=== PATIENT | female | born 1980 | race Caucasian/White ===

== ENCOUNTER 2022-12-04 09:39 | Emergency (ER) | payer OTHER, SELFPAY ==
[2022-12-04 09:58] VITALS: BP 116/46; PULSE 68; RESP 16; TEMP 36.5; O2SAT 100; BMI 22.1
[2022-12-04 10:26] LABS: Basophils Percent Auto 0.4 % (0-2); Eosinophils Absolute Auto 0.1 X10*3/uL (0.0-0.4); Eosinophils Percent Auto 1.3 % (0-4); Hematocrit 44.9 % (37.0-47.0); Hemoglobin 14.9 g/dl (12.0-16.0); Imm Gran Abs Auto 0.05 X10*3/uL (0.00-0.03); Imm Gran Pct Auto 0.6 % (0.0-0.4); Lymphocytes Absolute Auto 2.5 X10*3/uL (1.2-4.9); Lymphocytes Percent Auto 27.6 % (20-40); MANUAL DIFF FLAG NO; Mean Corpuscular HGB Conc 33.2 g/dl (31.0-35.0); Mean Corpuscular Hemoglobin 29.4 pg (27.0-33.0); Mean Corpuscular Volume 88.7 fL (80.0-98.0); Mean Platelet Volume 8.5 fL (9.4-12.3); Monocytes Absolute Auto 0.5 X10*3/uL (0.1-1.2); Monocytes Percent Auto 5.5 % (2-11); Neutrophils Absolute Auto 5.8 x10*3/uL (2.0-8.3); Neutrophils Percent Auto 64.6 % (45-73); Platelet Count 321 X10*3/uL (160-400); Red Blood Count 5.06 X10*6/uL (4.20-5.50); Red Cell Distribution Width 13.2 % (11.0-16.0); White Blood Count 8.9 X10*3/uL (4.8-10.8)
[2022-12-04 10:27] LABS: Appearance Urine Clear; Color Urine Yellow; Glucose Urine UA Negative (Negative); Leukocyte Esterase Urine Negative (Negative); Nitrite Urine Negative (Negative); Urine Blood Negative (Negative); Urine Ketones Negative (Negative); Urine Protein Negative (Neg-Trace)
[2022-12-04 10:38] LABS: Anion Gap 10 (12-20)
[2022-12-04 10:40] LABS: Calcium 9.3 mg/dL (8.4-10.2); Chloride 110 mmol/L (96-108); Glucose Random 91 mg/dL (60-115); Potassium 4.1 mmol/L (3.3-5.1)
[2022-12-04 11:04] LABS: Blood Urea Nitrogen 12 mg/dL (9-16); Carbon Dioxide 26 mmol/L (22-29); Creatinine Clr Calc Pharmacy 59.1; Estimated Glomerular Filt Rate > 60; Sodium 142 mmol/L (135-145)
--- NOTE | 2022-12-04 11:20 | ED.GENADULT ---
HPI - General Adult General Chief complaint: Back Pain/Injury Stated complaint: low blood pressure/ L side pain Time Seen by Provider: 12/04/22 11:19 Source: patient Mode of arrival: ambulatory Limitations: no limitations History of Present Illness HPI narrative: Patient with History of chronic kidney stones and flank pain previous CT scan showed stone in the kidney nonobstructive comes here as patient was seen at PCP office yesterday and pressure was 100/22 patient states she feel dizzy but at this time patient not feeling dizzy no fever no chills no nausea no vomiting on arrival blood pressure was 116/46 with pulse rate of 68 denies any heart issues Related Data Previous Rx's Medication Instructions Recorded tramadol 50 mg tablet 50 mg PO Q6H PRN pain #20 tabs 12/04/22 Allergies Allergy/AdvReac Type Severity Reaction Status Date / Time divalproex sodium Allergy Intermediate HEADACHE Verified 12/04/22 09:56 [From DEPAKOTE] oxcarbazepine [OXCARBAZEPINE] Allergy Intermediate HEADACHE Verified 12/04/22 09:56 amoxicillin [AMOXICILLIN] Allergy Unknown UNKNOWN Verified 12/04/22 09:56 aspirin [ASA] Allergy Unknown RASH Verified 12/04/22 09:56 azithromycin [AZITHROMYCIN] Allergy Unknown rash Verified 12/04/22 09:56 codeine [CODEINE] Allergy Unknown SWELLING Verified 12/04/22 09:56 erythromycin base Allergy Unknown rash Verified 12/04/22 09:56 [ERYTHROMYCIN BASE] penicillin V Allergy Unknown Hives Verified 12/04/22 09:56 Penicillins [PENICILLINS] Allergy Unknown HIVES Verified 12/04/22 09:56 valacyclovir [From VALTREX] Allergy Unknown rash Verified 12/04/22 09:56 fluoxetine [From PROZAC] AdvReac Unknown SUICIDAL Unverified 03/16/20 14:39 IDEATION trazodone [TRAZODONE] AdvReac Unknown NIGHTMARES Unverified 03/16/20 14:39 Erythromycin Allergy Unknown Rash Uncoded 12/04/22 09:56 Review of Systems Review of Systems: Yes all other systems are reviewed and are negative [facility] Social History Social History Advance Directives: No Physical Exam ED Vital Signs: Vital Signs - 24 hr 12/04/22 09:58 Temperature 97.7 F Pulse Rate 68 Respiratory Rate 16 Blood Pressure 116/46 L Pulse Oximetry 100 Oxygen Delivery Method Room Air BMI result Body Mass Index 22.1 Appearance: Alert. Oriented X3. No acute distress. Eyes: PERRLA, No Nystagmus ENT: Pharynx normal. Oral Mucosa moist Neck: Normal inspection. Neck supple. CVS: Normal heart rate and rhythm. Pulses normal. No murmur/rub or gallop Respiratory: No respiratory distress. Equal air entry bilateral, no wheezing/rales/rhonchi Abdomen: Soft and nontender. Bowel sounds are present, no mass palpable, left CVA tenderness+ Skin: Skin warm and dry. Normal skin color. Normal skin turgor. Extremities: No lower extremity edema. No calf tenderness Neuro: Oriented X 3. No motor deficit. Medical Decision Making Medical Decision Making [facility] Narrative: Patient with normal labs urine negative for blood likely patient has chronic renal colic from stone in the kidney which is nonobstructive as seen in previous CT scan patient. Patient blood pressure was recheck no orthostatic blood pressure was noticed it was 109/51 while lying, 116/64 while seated and 123/70 on standing. Patient reassured about blood pressure findings advised to drink plenty of fluids follow-up with urologist Lab Data [facility] Lab Attestation statement: I reviewed the patient's lab results. 12/04/22 10:11 12/04/22 10:11 Labs: Lab Results 12/04/22 12/04/22 12/04/22 Range/Units 10:11 10:11 10:11 WBC 8.9 (4.8-10.8) X10*3/uL RBC 5.06 (4.20-5.50) X10*6/uL Hgb 14.9 (12.0-16.0) g/dl Hct 44.9 (37.0-47.0) % MCV 88.7 (80.0-98.0) fL MCH 29.4 (27.0-33.0) pg MCHC 33.2 (31.0-35.0) g/dl RDW 13.2 (11.0-16.0) % Plt Count 321 (160-400) X10*3/uL MPV 8.5 L (9.4-12.3) fL Immature Gran % (Auto) 0.6 H (0.0-0.4) % Neut % (Auto) 64.6 (45-73) % Lymph % (Auto) 27.6 (20-40) % [place] % (Auto) 5.5 (2-11) % Eos % (Auto) 1.3 (0-4) % Baso % (Auto) 0.4 (0-2) % Lymph # (Auto) 2.5 (1.2-4.9) X10*3/uL [place] # (Auto) 0.5 (0.1-1.2) X10*3/uL Eos # (Auto) 0.1 (0.0-0.4) X10*3/uL Baso # (Auto) 0.0 (0.0-0.2) X10*3/uL Abs Immat Gran (auto) 0.05 H (0.00-0.03) X10*3/uL Absolute Neuts (auto) 5.8 (2.0-8.3) x10*3/uL Absolute Nucleated RBC 0.000 (0.0-0.012) X10*3/uL Nucleated RBC % (auto) 0.0 (0.0-0.2) /100WBC Sodium 142 (135-145) mmol/L Potassium 4.1 (3.3-5.1) mmol/L Chloride 110 H (96-108) mmol/L Carbon Dioxide 26 (22-29) mmol/L Anion Gap 10 L (12-20) BUN 12 (9-16) mg/dL Creatinine 0.99 (0.5-1.4) mg/dL Estim Creat Clear Calc 59.1 Estimated GFR > 60 Random Glucose 91 (60-115) mg/dL Calcium 9.3 (8.4-10.2) mg/dL Urine Color Yellow Urine Appearance Clear Urine pH 6.0 (5.0-9.0) Ur Specific [place] 1.020 (1.005-1.025) Urine Protein Negative (Neg-Trace) mg/dL Urine Glucose (UA) Negative (Negative) mg/dL Urine Ketones Negative (Negative) mg/dL Urine Blood Negative (Negative) Urine Nitrite Negative (Negative) Ur Leukocyte Esterase Negative (Negative) Discharge Plan Discharge Clinical Impression: Renal colic Patient Disposition: Home, Self-Care Instructions: Renal Colic (ED) Additional Instructions: Drink plenty of fluids Pain medication as prescribed Follow-up with urology Your blood pressure is normal Prescriptions: New tramadol 50 mg tablet 50 mg PO Q6H PRN (Reason: pain) Qty: 20 0RF Referrals: Quentin Smiley MD [Physician] - 2 weeks
[2022-12-04 12:56] VITALS: BP 128/60
== END 2022-12-04 12:57 | disposition home or self-care (01) ==
PROVIDERS: Emergency Provider Internal Medicine; PCP Nurse Practitioner Family
DX: N23 Unspecified renal colic (principal)
CPT/HCPCS: 36415; 80048; 81003; 85025; 99283

== ENCOUNTER 2023-01-06 08:55 | Outpatient (AMB) | payer OTHER, SELFPAY ==
--- NOTE | 2023-01-06 09:00 | A.OFFVIS_ITS ---
Intake Intake Visit Reasons: ER follow up- hx stones/renal colic Intake Note: Patient is present for initial visit ER follow up h/o kidney stones/renal colic ER Visit: 12/04/22 Urology Medications: none Blood Thinner: none Grinding Wheel Operator Required: No Accompanied by: Self / Same As Patient Allergies divalproex sodium [From DEPAKOTE] Allergy (Intermediate, Verified 01/06/23 19:30) HEADACHE oxcarbazepine [OXCARBAZEPINE] Allergy (Intermediate, Verified 01/06/23 19:30) HEADACHE amoxicillin [AMOXICILLIN] Allergy (Unknown, Verified 01/06/23 19:30) UNKNOWN aspirin [ASA] Allergy (Unknown, Verified 01/06/23 19:30) RASH azithromycin [AZITHROMYCIN] Allergy (Unknown, Verified 01/06/23 19:30) rash codeine [CODEINE] Allergy (Unknown, Verified 01/06/23 19:30) SWELLING erythromycin base [ERYTHROMYCIN BASE] Allergy (Unknown, Verified 01/06/23 19:30) rash penicillin V Allergy (Unknown, Verified 01/06/23 19:30) Hives Penicillins [PENICILLINS] Allergy (Unknown, Verified 01/06/23 19:30) HIVES valacyclovir [From VALTREX] Allergy (Unknown, Verified 01/06/23 19:30) rash fluoxetine [From PROZAC] Adverse Reaction (Unknown, Unverified 01/06/23 19:30) SUICIDAL IDEATION trazodone [TRAZODONE] Adverse Reaction (Unknown, Unverified 01/06/23 19:30) NIGHTMARES Erythromycin Allergy (Unknown, Uncoded 01/06/23 19:30) Rash Medication List - Last Reconciled 01/06/23 by CHEY Ortiz-BC creatine monohydrate ea PO dextroamphetamine-amphetamine 15 mg 1 tab PO BID PRN dextroamphetamine-amphetamine 30 mg ER 1 cap PO DAILY mecobalamin (vitamin B12) mcg PO HPI HPI Comments History of Present Illness Details Eugenia is a very pleasant 42-year-old female patient of Dr. Vega. She presents to the office today as a new patient for history of nephrolithiasis. In discussion with the patient today she reports to be doing and feeling well. She reports recently seeking emergency room care approximately 1 month ago for hypotension as well as left-sided flank pain/low black pain that radiated to her abdomen. In review of patient's chart it does not appear recent imaging was completed and or obtained. Most recent CT imaging from 2020 showing bilateral nonobstructing renal calculi. Patient reports feeling frustrated over care she received while in the ER. Patient reports pain has since subsided. She denies urinary urgency, urinary frequency, incontinence, nocturia, hematuria, dysuria, foul smelling urine, changes to urinary stream, flank pain, fever, and or chills. She is happy with her current voiding parameters. When asked she reports a longstanding history of nephrolithiasis with previous surgical intervention including ESWL as well as ureteroscopy. She reports having followed up with Dr. Forman in the past. When asked she reports to be drinking soda and energy drinks daily. Discussed at length the importance of drinking water in relation to longstanding history of nephrolithiasis as well as for overall health and well-being. In office urinalysis results reviewed with the patient today. She otherwise offers no issues or concerns at this time. Review of Systems Const All systems reviewed & are unremarkable except as noted in HPI and below Reports no additional complaints Eyes Reports no additional complaints ENT Reports no additional complaints Card Reports no additional complaints Resp Reports no additional complaints GI Reports no additional complaints Reports as per HPI Musc Reports no additional complaints Neuro Reports no additional complaints Psych Details: Patient reports she has a history of SI over 5 years ago. She denies any SI at this time. Endo Reports no additional complaints Ubaldo/Lymph Reports no additional complaints Aller/Immun Reports no additional complaints Physical Exam Const General: cooperative, healthy appearing, comfortable, no acute distress, well developed, alert and awake Nutritional Appearance: average body habitus Orientation/consciousness: patient oriented x3 Limitations: no limitations HEENT Head: Yes normal to inspection, Yes normocephalic and Yes atraumatic Ears: hearing grossly normal bilaterally Eyes General: appearance normal, both eyes and all related structures Neck Neck: Yes normal visual inspection and Yes trachea midline Chest Chest palpation & inspection: normal inspection of the chest Resp Effort & Inspection: normal respiratory effort and able to speak in complete sentences Cardio Rate: regular rate GI Inspection: Yes normal to inspection General: Yes no CVA tenderness Back/Spine/Pelvis Back: no CVA tenderness Skin General skin exam: no rashes or lesions noted Neuro General: patient oriented x3 Extrem General: Yes normal to inspection Psych Appearance: grossly normal and well kempt Mental Status: mental status grossly normal Speech and movement: Normal speech and movement present and Clear speech present Affect: normal affect Attitude: cooperative Thought process: Normal thought process present Thought content: Normal thought content present Insight: Fair insight present (Psych) Judgement: Fair judgement present (Psych) Results AMB Urinalysis, Automated UA Leukoctes 0 Mervat/uL Last Edit by CORD:USE [facility] Abelino on 01/06/23 09:12 UA Nitrite Negative Last Edit by Movellasyamila Onstream Mediaclaudine on 01/06/23 09:12 UA Urobilinogen 0.2 mg/dL Last Edit by Cartilixclaudine on 01/06/23 09:12 UA Protein 0 mg/dL Last Edit by Cartilixclaudine on 01/06/23 09:12 UA pH 7.0 Last Edit by Movellasyamila [employer]stream Mediaclaudine on 01/06/23 09:12 UA Blood 0 Frank/uL Last Edit by Cartilixclaudine on 01/06/23 09:12 UA Specific [place] 1.010 Last Edit by Cartilixclaudine on 01/06/23 09:12 UA Ketone Negative Last Edit by Cartilixclaudine on 01/06/23 09:12 UA Bilirubin 0 mg/dL Last Edit by Cartilixclaudine on 01/06/23 09:12 UA Glucose 0 mg/dL Last Edit by Movellasyamila Onstream Mediaclaudine on 01/06/23 09:12 Results Reviewed Results Reviewed: Laboratory Last Values Urine pH (Auto) 7.0 01/06/23 09:06 Specific [place] (Auto) 1.010 01/06/23 09:06 Urine Protein (Auto) 0 mg/dL 01/06/23 09:06 Glucose (UA)(Auto) 0 mg/dL 01/06/23 09:06 Urine Ketones (Auto) Negative 01/06/23 09:06 Urine Blood (Auto) 0 Frank/uL 01/06/23 09:06 Urine Nitrite (Auto) Negative 01/06/23 09:06 Urine Bilirubin (Auto) 0 mg/dL 01/06/23 09:06 Urine Urobilinogen (Auto) 0.2 mg/dL 01/06/23 09:06 Leukocyte Esterase (Auto) 0 Mervat/uL 01/06/23 09:06 Assessment & Plan Assessment & Plan (1) Bilateral renal stones: Code(s): N20.0 - Calculus of kidney Plan In office urinalysis results reviewed with the patient today; as noted above. Will obtain renal ultrasound for further assessment evaluation. Patient reports left-sided flank pain that radiated to her abdominal area has since subsided. Patient denies any urological issues or concerns at this time. Patient with previous CT imaging from 2020 with bilateral nonobstructing renal calculi Discussed at length the importance of drinking plenty of water daily. Discussed avoiding energy drinks and soda in relation to longstanding history of nephrolithiasis as well as for overall health and well-being. Discussed adding 1 oz of lemon juice to water daily. Discussed initiation of vitamin B6 in the setting of nephrolithiasis. Follow-up in 4-6 weeks with imaging to be completed prior; or sooner with any issues, concerns, and or questions. Orders: Orders US renal BI Today N20.0 - Calculus of kidney AMB Urinalysis Automated Today Z13.9 - Encounter for screening, unspecified Patient Instructions: The patient had an opportunity to ask questions regarding the treatment plan. All questions were answered. Physical exam, labs, and imaging were discussed and reviewed in detail. As well as risks, benefits, and discussion of treatment choices. No major barriers to understanding were identified. The patient expressed understanding and agreement with the above treatment plan. The patient was made aware they should contact our office by phone for worsening of their current condition, the appearance of new symptoms, or with any questions or concerns. Compliance is encouraged with any medications and follow up testing that is ordered. It is a privilege to be allowed the opportunity to participate in? your urological care.? Again, if you have any questions or concerns If you have any questions or concerns please do not hesitate to contact me. The office is [phone]. This note is constructed using voice recognition software. While every effort has been made to ensure accuracy continuous process coffee roaster errors may have been included. Yours sincerely, ANTONIO Ortiz Coding Level of Care Code New Pt Level 3 (93490) Diagnoses Bilateral renal stones N20.0
== END 2023-01-06 10:39 | disposition home or self-care (01) ==
PROVIDERS: PCP Nurse Practitioner Family; Visit Provider Nurse Practitioner Family
DX: N20.0 Calculus of kidney (principal)
CPT/HCPCS: 99203

== ENCOUNTER → 2023-01-06 08:55 | Outpatient (BNVA) | payer OTHER, SELFPAY | PROVIDERS: PCP Nurse Practitioner Family; Visit Provider Nurse Practitioner Family | DX: N20.0 Calculus of kidney (principal) | CPT/HCPCS: 99202 ==

== ENCOUNTER 2023-01-27 08:30 | Outpatient (REF) | payer OTHER, SELFPAY ==
--- NOTE | ~2023-01-27 | US_ITS ---
EXAMINATION: US RETROPERITONEAL LIMITED (RENAL ONLY) CLINICAL INFORMATION: Calculus of kidney. COMPARISON: Ultrasound retroperitoneal limited (renal only) 05/23/2021 and 07/30/2019. CT abdomen and pelvis without contrast 01/28/2019. X-ray abdomen KUB 08/02/2015 and 07/26/2015. TECHNIQUE: Real-time imaging of the kidneys. FINDINGS: RIGHT KIDNEY: 11.3 x 2.9 x 5.8 cm (SAG x AP x TRV). The kidney is normal in size, contour, and echogenicity. Renal cortical thickness is normal. No focal parenchymal lesions or hydronephrosis. There are nonobstructive echogenic stones. A lower pole stone measures 0.4 x 0.3 x 0.3 cm. Midpole stones measures 0.3 x 0.3 x 0.3 cm and 0.4 x 0.3 x 0.3). LEFT KIDNEY: 10.7 x 4.8 x 5.0 cm (SAG x AP x TRV). The kidney is normal in size, contour, and echogenicity. Renal cortical thickness is normal. No calculi or focal parenchymal lesions. No hydronephrosis. US/US renal BI IMPRESSION: 1. Nonobstructive echogenic stones right kidney. No caliectasis or hydronephrosis. 2. The left kidney is unremarkable.
== END 2023-01-27 08:31 | disposition home or self-care (01) ==
LOC: HO.HMGCX 08:30
PROVIDERS: PCP Nurse Practitioner Family; Visit Provider Nurse Practitioner Family
DX: N20.0 Calculus of kidney (principal)
CPT/HCPCS: 76775

== ENCOUNTER 2023-05-14 14:59 | Emergency (ER) | payer OTHER, SELFPAY ==
--- NOTE | 2023-05-14 15:12 | ED_ITS ---
HPI - General Adult General Chief complaint: Psychiatric Symptoms Stated complaint: SI THREATS @WORK THIS AM,NO LONGER SI,WANTS EVAL Time Seen by Provider: 05/14/23 15:11 Source: patient and EMS Mode of arrival: EMS Limitations: no limitations History of Present Illness HPI narrative: Patient is a 42 year old assigned female at with a history of mental health issues presenting to the emergency department today with possible suicidal statements. Patient states that she was at work, talking to HR about how her mental health causes her to call off work sometimes and explaining she had a suicide attempt many years ago. Patient states that she went to lunch and when she returned, she was met by police and told that she needed to come to the hospital to be evaluated by mental health professionals. Patient states that she did not make suicidal statements and is not feeling suicidal at this time. Patient denies any dizziness, lightheadedness, abdominal pain, nausea, vomiting, fever, chills, blurry vision, double vision, loss of vision, chest pain, difficulty breathing, shortness of breath, back pain, night sweats, pain with urination, increased urinary frequency, increased urinary urgency, blood in her urine or stool, syncope or a near syncopal episode, recent trauma or falls, bowel incontinence, bladder incontinence, bowel retention, bladder retention, or any other complaints at this time. Relieving factors: none Exacerbating factors: none Associated symptoms: denies other symptoms Treatments prior to arrival: none Related Data Home Medications Medication Instructions Recorded Confirmed creatine monohydrate ea PO 01/06/23 01/06/23 dextroamphetamine-amphetamine 15 1 tab PO BID PRN 01/06/23 01/06/23 mg tablet dextroamphetamine-amphetamine ER 1 cap PO DAILY 01/06/23 01/06/23 30 mg 24hr capsule,extend release mecobalamin (vitamin B12) 500 mcg mcg PO 01/06/23 01/06/23 chewable tablet Allergies Allergy/AdvReac Type Severity Reaction Status Date / Time divalproex sodium Allergy Intermediate HEADACHE Verified 01/06/23 19:30 [From DEPAKOTE] oxcarbazepine [OXCARBAZEPINE] Allergy Intermediate HEADACHE Verified 01/06/23 19:30 amoxicillin [AMOXICILLIN] Allergy Unknown UNKNOWN Verified 01/06/23 19:30 aspirin [ASA] Allergy Unknown RASH Verified 01/06/23 19:30 azithromycin [AZITHROMYCIN] Allergy Unknown rash Verified 01/06/23 19:30 codeine [CODEINE] Allergy Unknown SWELLING Verified 01/06/23 19:30 erythromycin base Allergy Unknown rash Verified 01/06/23 19:30 [ERYTHROMYCIN BASE] penicillin V Allergy Unknown Hives Verified 01/06/23 19:30 Penicillins [PENICILLINS] Allergy Unknown HIVES Verified 01/06/23 19:30 valacyclovir [From VALTREX] Allergy Unknown rash Verified 01/06/23 19:30 fluoxetine [From PROZAC] AdvReac Unknown SUICIDAL Unverified 01/06/23 19:30 IDEATION trazodone [TRAZODONE] AdvReac Unknown NIGHTMARES Unverified 01/06/23 19:30 Erythromycin Allergy Unknown Rash Uncoded 01/06/23 19:30 Review of Systems 2 Constitutional: Constitutional: Reports no additional constitutional complaints, Denies chills, Denies fever(s) and Denies night sweats Eyes: Eyes: Reports no additional eye complaints, Denies blurry vision, Denies change in vision, Denies diplopia, Denies eye discharge, Denies loss of vision and Denies eye pain ENT: Denies dizziness Cardiovascular: Cardiovascular: Reports no additional cardiovascular complaints, Denies chest pain, Denies lightheadedness, Denies Loss of Consciousness and Denies dyspnea Respiratory: Respiratory: Reports no additional respiratory complaints and Denies dyspnea Gastrointestinal: Gastrointestinal: Reports no additional gastrointestinal complaints, Denies abdominal pain, Denies melena, Denies hematochezia, Denies change in bowel habits and Denies change in stool character Genitourinary: Genitourinary: Denies hematuria, Denies urinary frequency, Denies dysuria, Denies urinary incontinence, Denies urinary hesitancy and Denies urinary urgency Musculoskeletal: Musculoskeletal: Reports no additional musculoskeletal complaints, Denies numbness and Denies tingling Neurologic: Denies dizziness, Denies loss of vision, Denies numbness and Denies tingling Psychiatric: Psychiatric: Reports no additional psychiatric complaints, Denies homicidal ideation and Denies suicidal ideation Endocrine: Endocrine: Reports no additional endocrine complaints Hematologic/Lymphatic: Hematologic/Lymphatic: Reports no additional hematologic/lymphatic complaints Allergic/Immunologic: Allergic/Immunologic: Reports no additional allergic/immunologic complaints PMFSH Past Medical History Attestation statement: The following information was validated with the patient. Source: old records reviewed and nursing notes reviewed Physical Exam ED Vital Signs: Vital Signs - 24 hr 05/14/23 15:22 Temperature 98.6 F Pulse Rate 80 Respiratory Rate 16 Blood Pressure 139/47 L Pulse Oximetry 99 Oxygen Delivery Method Room Air BMI result Body Mass Index 26.6 Const General: cooperative, no acute distress, alert and awake Nutritional Appearance: well nourished Orientation/consciousness: patient oriented x3 Limitations: no limitations HENMT Head: Yes normal to inspection and Yes atraumatic Ears: hearing grossly normal bilaterally and external ears normal General nose exam: Normal external nose present, no nasal discharge noted and no epistaxis Face and sinus: Yes normal facial exam, No abrasion and No laceration Mouth: Normal oral and palatal mucosa present, no drooling and no muffled voice Eyes General: appearance normal, both eyes and all related structures Periorbital: periorbital findings normal Eyelids: Yes eyelids normal Conjunctivae: conjunctivae normal Pupils: Equal, round and reactive pupils present EOM: EOMs intact bilaterally Neck Neck: Yes normal visual inspection, Yes full ROM and Yes no lymphadenopathy Chest Chest palpation & inspection: normal inspection of the chest Resp Effort & Inspection: normal respiratory effort and able to speak in complete sentences GI Inspection: Yes normal to inspection Neuro General: patient oriented x3 and moves all extremities Cranial nerves: Yes Equal, round and reactive pupils present Cognition (Neuro): normal cognition Motor exam (neuro): 5/5 motor strength present throughout Sensory Exam: Normal double simultaneous stimulation for sensation Coordination: [id number] test normal Extrem General: Yes normal to inspection, Yes full ROM and Yes capillary refill normal Psych Appearance: grossly normal Mental Status: mental status grossly normal Affect: normal affect Attitude: cooperative Thought process: Normal thought process present Thought content: Normal thought content present Insight: Good insight present (Psych) Medical Decision Making Medical Decision Making MDM Narrative: Patient is a 42 year old assigned female at with a history of mental health issues presenting to the emergency department today for an evaluation after being accused of making suicidal statements. Patient's physical exam was unremarkable. Patient's labs are pending at this time. Patient's CARE team evaluation is pending at this time. Disposition will be determined after labs have resulted and the CARE team evalution has been done. Differential Diagnosis Differential Diagnoses: The differential diagnosis associated with the presentation includes Suicidal ideation Depression Mental health crisis Normal evaluation Admission/Observation Consideration of admission/observation: Escalation of care including admission/observation considered Admission will be determined after the patient's labs have resulted and the patient is evaluated by the CARE team. Lab Data MDM Lab Attestation statement: I reviewed the patient's lab results. 05/14/23 15:37 05/14/23 15:37 Labs: Lab Results 05/14/23 Range/Units 15:37 WBC 9.9 (4.8-10.8) X10*3/uL RBC 5.07 (4.20-5.50) X10*6/uL Hgb 15.1 (12.0-16.0) g/dl Hct 44.9 (37.0-47.0) % MCV 88.6 (80.0-98.0) fL MCH 29.8 (27.0-33.0) pg MCHC 33.6 (31.0-35.0) g/dl RDW 13.0 (11.0-16.0) % Plt Count 314 (160-400) X10*3/uL MPV 8.3 L (9.4-12.3) fL Immature Gran % (Auto) 0.8 H (0.0-0.4) % Neut % (Auto) 67.7 (45-73) % Lymph % (Auto) 22.9 (20-40) % [place] % (Auto) 5.7 (2-11) % Eos % (Auto) 2.0 (0-4) % Baso % (Auto) 0.9 (0-2) % Lymph # (Auto) 2.3 (1.2-4.9) X10*3/uL [place] # (Auto) 0.6 (0.1-1.2) X10*3/uL Eos # (Auto) 0.2 (0.0-0.4) X10*3/uL Baso # (Auto) 0.1 (0.0-0.2) X10*3/uL Abs Immat Gran (auto) 0.08 H (0.00-0.03) X10*3/uL Absolute Neuts (auto) 6.7 (2.0-8.3) x10*3/uL Absolute Nucleated RBC 0.000 (0.0-0.012) X10*3/uL Nucleated RBC % (auto) 0.0 (0.0-0.2) /100WBC Independent Historian Clinical information obtained from an independent historian. History obtained from or confirmed by: EMS (EMS provided additional history and confirmed the history provided by the patient.) Discharge Plan Discharge Clinical Impression: Mental health-related complaint Patient Disposition: Still a Patient Prescriptions: No Action dextroamphetamine-amphetamine 30 mg capsule,extended release 24hr 1 cap PO DAILY dextroamphetamine-amphetamine 15 mg tablet 1 tab PO BID PRN creatine monohydrate Powder PO mecobalamin (vitamin B12) 500 mcg tablet,chewable PO
[2023-05-14 15:22] VITALS: BP 139/47; PULSE 80; RESP 16; TEMP 37; O2SAT 99; BMI 26.6
[2023-05-14 15:42] LABS: MANUAL DIFF FLAG NO
[2023-05-14 15:47] LABS: Basophils Absolute Auto 0.1 X10*3/uL (0.0-0.2); Basophils Percent Auto 0.9 % (0-2); Eosinophils Absolute Auto 0.2 X10*3/uL (0.0-0.4); Hematocrit 44.9 % (37.0-47.0); Hemoglobin 15.1 g/dl (12.0-16.0); Imm Gran Abs Auto 0.08 X10*3/uL (0.00-0.03); Imm Gran Pct Auto 0.8 % (0.0-0.4); Lymphocytes Absolute Auto 2.3 X10*3/uL (1.2-4.9); Lymphocytes Percent Auto 22.9 % (20-40); Mean Corpuscular HGB Conc 33.6 g/dl (31.0-35.0); Mean Corpuscular Hemoglobin 29.8 pg (27.0-33.0); Mean Corpuscular Volume 88.6 fL (80.0-98.0); Mean Platelet Volume 8.3 fL (9.4-12.3); Monocytes Absolute Auto 0.6 X10*3/uL (0.1-1.2); Monocytes Percent Auto 5.7 % (2-11); Neutrophils Absolute Auto 6.7 x10*3/uL (2.0-8.3); Neutrophils Percent Auto 67.7 % (45-73); Platelet Count 314 X10*3/uL (160-400); Red Blood Count 5.07 X10*6/uL (4.20-5.50); White Blood Count 9.9 X10*3/uL (4.8-10.8)
[2023-05-14 15:54] LABS: Appearance Urine Clear; Color Urine Yellow; Glucose Urine UA Negative (Negative); Leukocyte Esterase Urine Negative (Negative); Nitrite Urine Negative (Negative); PH 7.5 (5.0-9.0); Specific Gravity - Urine 1.015 (1.005-1.025); UPreg QC Valid YES; Urine Blood Negative (Negative); Urine Ketones Negative (Negative); Urine Pregnancy NEGATIVE (NEGATIVE); Urine Protein Negative (Neg-Trace)
[2023-05-14 15:56] LABS: Amphetamine Screen Urine Not Detected (Not Detect); Barbiturates, Urine Not Detected (Not Detect); Benzodiazepines Screen Urine Not Detected (Not Detect); Cannabinoid Screen Urine POSITIVE (Not Detect); Cocaine Screen Urine Not Detected (Not Detect); Fentanyl, urine Not Detected (Not Detect); Opiate Screen Urine Not Detected (Not Detect); Phencyclidine Screen Urine Not Detected (Not Detect)
[2023-05-14 16:04] LABS: Alanine Aminotransferase 22 U/L (0-31); Albumin Level 4.4 g/dL (3.5-5.0); Alkaline Phosphatase 55 U/L (39-117); Anion Gap 10 (12-20); Aspartate Amino Transferase 18 U/L (5-31); Bilirubin Total 0.5 mg/dL (0.0-1.0); Blood Urea Nitrogen 9 mg/dL (9-16); Calcium 9.5 mg/dL (8.4-10.2); Carbon Dioxide 26 mmol/L (22-29); Chloride 110 mmol/L (96-108); Creatinine Clr Calc Pharmacy 91.1; Estimated Glomerular Filt Rate > 60; Ethanol < 10 mg/dL; Glucose Random 74 mg/dL (60-115); Sodium 142 mmol/L (135-145); Total Protein 7.2 g/dL (6.5-8.0)
[2023-05-14 16:05] LABS: COVID-19 Test Negative (Negative); IDNOW Serial# BCCEAD1C
[2023-05-14 16:06] LABS: Acetaminophen LAB < 3 mcg/mL (<30); Salicylate < 5.0 mg/dL (15-30)
== END 2023-05-14 17:35 | disposition home or self-care (01) ==
PROVIDERS: Physician Assistant Medical; Emergency Provider Emergency Medicine Emergency Medical Services; PCP Nurse Practitioner Family
DX: R45.851 Suicidal ideations (principal); Z79.899 Other long term (current) drug therapy; Z11.52 Encounter for screening for COVID-19; Z20.822 Contact with and (suspected) exposure to COVID-19
CPT/HCPCS: 80053; 80143; 80179; 80307; 81003; 81025; 85025; 87635; 99284; S9485